=== PATIENT | female | born 1990 | race Hispanic/Latino ===

== ENCOUNTER 2017-05-11 06:37 | Day surgery (SDC) | payer BC ==
[2017-05-03 06:52] VITALS: BMI 29.0
[2017-05-11] MEDS ORDERED: Propofol 10 mg/ml Inj (20 ML) ONE ×3 (07:21→07:45)
[2017-05-11] MEDS ORDERED: Bupivacaine 0.5% Inj(30mL) ONE (07:21)
[2017-05-11] MEDS ORDERED: Midazolam 2 MG/2 ML VIAL ONE (07:21)
[2017-05-11] MEDS ORDERED: Bacitracin Ointment 30 GM TUBE ONE (07:26)
[2017-05-11] MEDS ORDERED: Sodium Chloride 0.9% 1,000 ML IV SCH (08:15)
--- NOTE | 2017-05-11 08:17 | PCM.SURG1 ---
Surgeon's Initial Post Op Note - Surgeon's Notes Surgeon: Dr. Angel Miranda DPM Rn Acute Care: Dr. Joseluis Perez DPM PGY-1 Type of Anesthesia: IV Sedation, Local Anesthesia Administered By: Dr. Mickey MD Pre-Operative Diagnosis: painful chronic paranychia of bilaterally halluxes Operative Findings: see dication. total of 5cc of .5% marcaine to left foot and total of 5 cc .5 marcaine to right foot Post-Operative Diagnosis: same Operation Performed: chemical matrixectomy of medial and lateral nail borders of 1st halluxes Specimen/Specimens Removed: none Estimated Blood Loss: EBL {In ML}: 1 Blood Products Given: N/A Drains Used: No Drains Post-Op Condition: Good Date of Surgery/Procedure: 05/11/17 Time of Surgery/Procedure: 07:40
[2017-05-11] MEDS ORDERED: Oxycodone/Acetaminophen 5/325 mg Tab PO PRN ×2 (08:20)
--- NOTE | 2017-05-11 08:27 | CP.PCM.PN ---
Subjective - Date & Time of Evaluation Date of Evaluation: 05/11/17 Time of Evaluation: 07:10 - Subjective Subjective: Pre-operative Note for Dr. Miranda 26 y.o female seen in [facility] for pre-evaluation of chronic paranychia both labia of both 1st toes. Patient understands she is going to surgery and is aware of the procedure. Patient reports nothing to eat or drink since last night. Patient denies n/v/sob/cp/chills or f. She has no other pedal complaints at this time. Objective - Vital Signs/Intake and Output Vital Signs (last 24 hours): Temp Pulse Resp BP Pulse Ox 98.3 F 62 18 103/61 99 05/11/17 07:00 05/11/17 07:00 05/11/17 07:00 05/11/17 07:00 05/11/17 07:00 Intake and Output: 05/11/17 05/11/17 06:59 18:59 Intake Total 0 Balance 0 - Medications Medications: Current Medications Acetaminophen (Tylenol 650 Mg Supp) 650 mg RC Q4H PRN PRN Reason: Pain, Mild (1-3) Sodium Chloride (Sodium Chloride 0.9%) 1,000 mls @ 100 mls/hr IV .Q10H GEMMA Oxycodone/Acetaminophen (Percocet 5/325 Mg Tab) 1 tab PO Q6H PRN PRN Reason: Pain, moderate (4-7) Stop: 05/14/17 08:21 Oxycodone/Acetaminophen (Percocet 5/325 Mg Tab) 2 tab PO Q6H PRN PRN Reason: Pain, severe (8-10) Stop: 05/14/17 08:21 - Constitutional Appears: Well, Non-toxic, No Acute Distress - Extremities Exam Additional comments: Vasc: DP and PT 2/4 bilaterally, CFT < 3 seconds x 10, temperature gradient WNL , no edema noted Ortho: pain with palpation to the medial and lateral borders of the halluces, MM is 5/5 in all four compartments Neuro: protective and gross sensation intact bilaterally Derm: no open lesions noted, hyperkeratotic tissue noted to the bilaterally nail folds of halluces bilaterally, no active clinical signs of infection - Neurological Exam Neurological Exam: Alert, Awake, Oriented x3 - Psychiatric Exam Psychiatric exam: Normal Affect, Normal Mood Assessment and Plan - Assessment and Plan (Free Text) Assessment: 6 y.o female seen in [facility] for pre-evaluation of chronic paranychia both labia of both 1st toes Plan: Pt was seen and examined in [facility] Pt NPO status was confirmed All Pre-op testing and clearance was in the chart Pt has exhausted all conservative treatment at this time and is opting for surgical intervention Pt was explained procedure and post-operative course All pt's questions were answered to satisfaction No guarantees were made Pt understands all risks, benefits and complications of procedure Pt will follow-up with Dr. Angel Miranda
--- NOTE | 2017-05-11 09:18 | CP.PCM.DIS ---
Provider - Provider Date of Admission: [facility] 05/11/17 Attending physician: Angel Miranda DPM Primary care physician: Sabrina Genao DO Time Spent in preparation of Discharge (in minutes): 20 Diagnosis - Discharge Diagnosis (1) Chronic paronychia Status: Acute Hospital Course - Hospital Course Hospital Course: Patient underwent surgical treatment for chronic paranychia of medial and lateral nail borders of bilateral halluxes. Treatment sought after exhausting all conservative treatment options. Patient underwent surgery and tolerated procedure well. Discharge Exam - Extremities Exam Additional comments: dressing is c/d/i to both LE. Discharge Plan - Follow Up Plan Condition: GOOD Disposition: HOME/ ROUTINE Patient education suggested?: Yes Instructions: Partial Nail Avulsion for Ingrown Nail (DC) Additional Instructions: - Patient evaluated bedside in recovery s/p surgical procedure. - After surgical procedure patient in NAD - (+) Void, (+) Appetite - Capillary refill time <3s and NVSI intact. - Patient denies complaints at this time - Post operative instructions and plan of care explained to patient at length. - Pt. acknowledges understanding. - Patient stable for DC per podiatric surgery --Patient in good/stable condition for discharge home. Pt to resume medications per medical reconciliation. Resume regular diet. Please keep dressing clean, dry, & intact to surgical site, use plastic bag over bandage for showering today, wear post op shoe at all times when ambulating, call clinic if you see signs of infection (redness, swelling, malodor), please make an appointment to see Dr. Miranda in office/clinic within 1 week for post-op check. Additional instructions are written and given to the patient. Referrals: Sabrina Genao DO [Primary Care Provider] -
[2017-05-11 09:40] VITALS: RESP 18; TEMP 98.5; O2SAT 99
[2017-05-11 10:03] VITALS: BP 109/58; PULSE 83
== END 2017-05-11 10:30 | disposition home or self-care (01) ==
LOC: SDS 06:37
PROVIDERS: ATTEND Podiatrist
DX: L03.032 Cellulitis of left toe (principal); L03.031 Cellulitis of right toe; L60.0 Ingrowing nail